=== PATIENT | female | born 1955 | race Caucasian/White ===

== ENCOUNTER 2023-03-25 16:42 | Emergency (ER) | payer OTHER ==
[~2023-03-25] VITALS: Ht 165.1 cm; Wt 108.2 kg
[2023-03-25 17:00] VITALS: TEMP 98
[2023-03-25] MEDS ORDERED: ACETAMINOPHEN 325 MG TAB PO ONE (18:00)
[2023-03-25 18:12] LABS: BLOOD UREA NITROGEN 15 MG/DL (9-23); CALCIUM LEVEL 9.3 MG/DL (8.3-10.6); CARBON DIOXIDE LEVEL 29 MMOL/L (20-31); CHLORIDE LEVEL 108 MMOL/L (98-107); CREATININE FOR GFR 0.79 MG/DL (0.55-1.30); GLOMERULAR FILTRATION RATE > 60.0 (>45); GLUCOSE, FASTING 123 MG/DL (74-106); POTASSIUM SERUM 4.6 MMOL/L (3.5-5.1); SODIUM LEVEL 142 MMOL/L (136-145)
[2023-03-25 18:15] VITALS: BP 167/93
[2023-03-25] MEDS ORDERED: ISOVUE-370 76% 100ML VIAL As Ordered ONE (18:19)
[2023-03-25 18:42] VITALS: O2SAT 96
== END 2023-03-25 19:35 | disposition home or self-care (01) ==
LOC: EDBD 16:42 → M ED 16:42
DX: S20.214A Contusion of middle front wall of thorax, initial encounter (principal); S70.12XA Contusion of left thigh, initial encounter; E78.5 Hyperlipidemia, unspecified; V49.40XA Driver injured in collision with unspecified motor vehicles in traffic accident, initial encounter
CPT/HCPCS: 36415; 71045; 71260; 72125; 73552; 80048; 99284; Q9967